=== PATIENT | male | born 1995 | race Caucasian/White ===

== ENCOUNTER 2017-01-14 19:00 | Emergency (ER) | payer OTHER ==
[~2017-01-14] VITALS: Ht 175.3 cm; Wt 113.6 kg
[2017-01-14 19:15] VITALS: BP 106/73; PULSE 98; RESP 18; O2SAT 97
== END 2017-01-14 22:27 | disposition left against medical advice (07) ==
LOC: SED 19:00
DX: Z53.21 Procedure and treatment not carried out due to patient leaving prior to being seen by health care provider (principal)